=== PATIENT | female | born 1960 | race Caucasian/White ===

== ENCOUNTER → 2018-06-04 | Outpatient (CLI) | payer OTHER ==
[~2018-06-04] MED LIST: ATROVENT 00.5 MG/2.5 IH; BACTROBAN OINT22 GM TP; CEFADROXIL500 MG PO; CYMBALTA20 MG; DULOXETINE HCL30 MG; DULOXETINE HCL60 MG; HYDRALAZINE HCL50 MG PO; IBUPROFEN800 MG PO; IRBESARTAN150 MG; LAMICTAL150 M1; LAMICTAL5 MG; LANTUS100 U/ML; LASIX20 MG PO; METFORMIN HCL1000 MG PO; METOPROLOL SUC100 MG; MOTRIN800 MG PO; NIFEDIPINE ER30 MG PO; ORPH100T PO; SPIRONOLACTONE25 MG PO; TOPROL XL100 M1 PO; XOPENEX0.63 MG/3 IH
== END | disposition home or self-care (01) ==
LOC: NUCLEAR 13:57
DX: M81.0 Age-related osteoporosis without current pathological fracture (principal); E11.8 Type 2 diabetes mellitus with unspecified complications; I10 Essential (primary) hypertension